=== PATIENT | male | born 1945 | race Caucasian/White ===

== ENCOUNTER 2016-11-12 19:52 | Day surgery (SDC) | payer OTHER ==
[2016-11-12 19:59] VITALS: O2SAT 96
--- NOTE | 2016-11-12 21:34 | UCPHY ---
H & P Time Seen by Provider: 11/12/16 21:05 Patient Type: New HPI/ROS: At 6 30 tonight while eating pork this patient developed a feeling of esophageal food impaction describing the inability to swallow thereafter any inability to tolerate his own secretions. He started spitting into a cup and reports no improvement. He's had similar brief episodes in the past that resolved without the need of medical attention. He denies any other associated symptoms except mild discomfort in the upper esophageal region. ROS: No coughing, shortness of breath no other pulmonary symptoms. GI: No vomiting. He denies any significant GERD symptoms or history of GERD symptoms. HEENT: No complaints neuro: No complaints. 7 point ROS is otherwise negative. Past Medical/Surgical History: Mild asthma Hypothyroid Smoking Status: Never smoked Physical Exam: Pleasant 69-year-old male in no acute distress General Appearance: Alert, no distress. Eyes: Pupils equal and round no pallor or injection. ENT, Mouth: Mucous membranes moist. Oropharynx: No erythema. No drooling or stridor. Respiratory: There are no retractions, lungs are clear to auscultation. Cardiovascular: Regular rate and rhythm. Gastrointestinal: Abdomen is soft and nontender, no masses, bowel sounds normal. Patient is leaning forward and spitting into a cup unable swallow secretions. Neurological: GCS 15 Skin: Warm and dry, no rashes. Musculoskeletal: Neck is supple nontender. Extremities are symmetrical, full range of motion. Psychiatric: Mood and affect normal DIFFERENTIAL DIAGNOSIS: After history and physical exam differential diagnosis was considered for esophageal food impaction, esophageal spasm, esophageal lesion Constitutional: Initial Vital Signs Temperature (C) 36.7 C 11/12/16 19:57 Heart Rate 69 11/12/16 19:57 Respiratory Rate 18 11/12/16 19:57 Blood Pressure 142/70 H 11/12/16 19:57 O2 Sat (%) 96 11/12/16 19:57 O2 Delivery Mode Room Air Allergies/Adverse Reactions: No Known Allergies Allergy (Unverified 09/14/10 11:36) Home Medications: Medication Instructions Recorded Albuterol Sulfate [Albuterol HFA 2 puffs IH Q4-6PRN PRN #1 inh 09/14/10 17g] Atorvastatin Calcium [Lipitor 20 mg PO DAILY 08/16/12 mg (RX)] Levothyroxine [Synthroid 100 mcg mcg PO DAILY06 08/16/12 (RX)] Travoprost [Travatan Z] 5 ml OP 08/16/12 MDM/Departure - MDM ED Course/Re-evaluation: Patient attempted to this episode of water with no success. IV Ativan 1 mg Discussion: Esoph food impaction warranting GI consult for upper endoscopy. I spoke with Dr. Garland Rogers at [facility] Emergency Department accepts patient for transfer. His will drive him to [facility]. I paged GI of the [facility]-Dr. Jose Deng at 9:35 p.m. and will consult him regarding this case. I spoke with Jose Deng-physician on-call for GI of [facility] regarding this case and he will consult at [facility] ED - Depart Disposition: Home, Routine, Self-Care Clinical Impression: Food impaction of esophagus Qualifiers: Encounter type: initial encounter Qualified Code(s): T18.128A - Food in esophagus causing other injury, initial encounter Condition: Good Instructions: Food Impaction (ED) Additional Instructions: Diagnosis: Esophageal food impaction Plan: Nothing to eat or drink, way the hospital Go directly to [facility] Emergency Department for further evaluation and treatment. Referrals: Collin Spaulding MD [Primary Care Provider] - As per Instructions - PQRS PQRS Measurement: 134: Depression screening and followup, PRIME MD-PHQ2 (12 years and older) Over the last 2 weeks, how often have you been bothered by any of the following problems? 1. Feeling down, depressed, or hopeless? 2. Little interest or pleasure in doing things? Patient answered no to both 1 and 2 130: Documentation of medications. Reviewed all patient medications, doses, route and frequency. 226: Do you smoke? [No.] 47: 65 and older: Advanced care planning. Patient designates surrogate decision maker as spouse 51: 18 years old and older with diagnosis of COPD, spirometry performance. NA 52: 18 years old and older with COPD and symptoms of COPD or FEV1<60% predicted prescribed a B Agonist. NA
[2016-11-12] MEDS ORDERED: LORazepam 2 MG/ML INJ IVP ONE ×2 (21:40→23:37)
[2016-11-12 22:00] LABS: % IMMATURE GRANULYOCYTES 0.3 % (0.0-1.1); ABSOLUTE IMMATURE GRANULOCYTES 0.02 10^3/uL (0.00-0.10); ADD DIFF? NO; ADD MORPH? NO; ADD SCAN? NO; ATYPICAL LYMPHOCYTE FLAG 0 (0-99); FRAGMENT RBC FLAG 0 (0-99); HEMATOCRIT 46.9 % (40.0-51.0); HEMOGLOBIN 16.6 g/dL (13.7-17.5); LEFT SHIFT FLG 0 (0-99); LIPEMIA HEMOLYSIS FLAG 90 (0-99); MEAN CELL HEMOGLOBIN 31.1 pg (27.9-34.1); MEAN CELL HEMOGLOBIN CONCENTR. 35.4 g/dL (32.4-36.7); MEAN CELL VOLUME 87.8 fL (81.5-99.8); MEAN PLATELET VOLUME 10.8 fL (8.7-11.7); PLATELET CLUMPS FLAG 0 (0-99); PLATELET COUNT 181 10^3/uL (150-400); RED BLOOD CELL COUNT 5.34 10^6/uL (4.40-6.38); RED CELL DISTRIBUTION WIDTH 13.2 % (11.5-15.2)
[2016-11-12 22:15] LABS: ANION GAP 17 mEq/L (8-16); CALCIUM 9.9 mg/dL (8.5-10.4); CARBON DIOXIDE 25 mEq/l (22-31); CHLORIDE 101 mEq/L (97-110); CREATININE 1.1 mg/dL (0.7-1.3); GLOMERULAR FILTRATION RATE > 60; GLUCOSE 103 mg/dL (70-100); POTASSIUM 4.1 mEq/L (3.5-5.2); SODIUM 143 mEq/L (134-144)
--- NOTE | 2016-11-12 22:46 | EDPHY ---
H & P Time Seen by Provider: 11/12/16 21:05 HPI/ROS: Chief Complaint: Can not swallow HPI: 71-year-old male presenting from [facility] with an esophageal food impaction. Patient was eating pork at 6:30 this evening when he had the sensation is unable to swallow. He has tried to swallow liquids since that time without success. He presented to [facility] and was diagnosed with a food impaction. He has had similar episodes in the past which were brief and did not require medical attention. Dr. Forbes spoke with Dr. Deng, gastroenterology. He will consult on the patient in the emergency department here. ROS: 10 point Review of Systems is negative except as noted in the HPI. PMH: Asthma, hypothyroidism Social History: No smoking, no alcohol, no recreational drug use Family History: non-contributory Physical Exam: Gen: Awake, Alert, uncomfortable appearing HEENT: Nose: no rhinorrhea Eyes: PERRLA, EOMI Mouth: Moist mucosa Neck: Supple, no JVD Chest: nontender, lungs clear to auscultation Heart: S1, S2 normal, no murmur Abd: Soft, non-tender, no guarding Back: no CVA tenderness, no midline tenderness Ext: no edema, non-tender Skin: no rash Neuro: CN II-XII intact, Sensation grossly intact, Strength 5/5 in bilateral upper and lower extremities - Medical/Surgical History Other PMH: denies - Social History Smoking Status: Never smoked Constitutional: Initial Vital Signs Temperature (C) 36.7 C 11/12/16 19:57 Heart Rate 69 11/12/16 19:57 Respiratory Rate 18 11/12/16 19:57 Blood Pressure 142/70 H 11/12/16 19:57 O2 Sat (%) 96 11/12/16 19:57 O2 Delivery Mode Nasal Cannula O2 (L/minute) 2 Allergies/Adverse Reactions: No Known Allergies Allergy (Unverified 09/14/10 11:36) Home Medications: Medication Instructions Recorded Albuterol Sulfate [Albuterol HFA 2 puffs IH Q4-6PRN PRN #1 inh 09/14/10 17g] Atorvastatin Calcium [Lipitor 20 mg PO DAILY 08/16/12 mg (RX)] Levothyroxine [Synthroid 100 mcg mcg PO DAILY06 08/16/12 (RX)] Travoprost [Travatan Z] 5 ml OP 08/16/12 Medical Decision Making ED Course/Re-evaluation: Will give IV glue gun and reassess. 23:35 patient received IV glucagon approximately 20 minutes ago. No change in his condition. I have discussed with Dr. Deng, GI. He is suggesting 1 and a additional mg of Ativan and sips of a carbonated beverage. He will recheck on the patient's progress and about an hour. Patient still unable to swallow. Patient to the endoscopy suite with Dr. Deng. - Data Points Laboratory Results: Laboratory Results 11/12/16 21:53 11/12/16 21:53 11/12/16 11/12/16 21:53 21:53 WBC 7.35 10^3/uL 10^3/uL (3.80-9.50) RBC 5.34 10^6/uL 10^6/uL (4.40-6.38) Hgb 16.6 g/dL g/dL (13.7-17.5) Hct 46.9 % % (40.0-51.0) MCV 87.8 fL fL (81.5-99.8) MCH 31.1 pg pg (27.9-34.1) MCHC 35.4 g/dL g/dL (32.4-36.7) RDW 13.2 % % (11.5-15.2) Plt Count 181 10^3/uL 10^3/uL (150-400) MPV 10.8 fL fL (8.7-11.7) Neut % (Auto) 58.0 % % (39.3-74.2) Lymph % (Auto) 29.3 % % (15.0-45.0) [place] % (Auto) 8.7 % % (4.5-13.0) Eos % (Auto) 3.0 % % (0.6-7.6) Baso % (Auto) 0.7 % % (0.3-1.7) Nucleat RBC Rel Count 0.0 % % (0.0-0.2) Absolute Neuts (auto) 4.27 10^3/uL 10^3/uL (1.70-6.50) Absolute Lymphs (auto) 2.15 10^3/uL 10^3/uL (1.00-3.00) Absolute Monos (auto) 0.64 10^3/uL 10^3/uL (0.30-0.80) Absolute Eos (auto) 0.22 10^3/uL 10^3/uL (0.03-0.40) Absolute Basos (auto) 0.05 10^3/uL 10^3/uL (0.02-0.10) Absolute Nucleated RBC 0.00 10^3/uL 10^3/uL (0-0.01) Immature Gran % 0.3 % % (0.0-1.1) Immature Gran # 0.02 10^3/uL 10^3/uL (0.00-0.10) Sodium 143 mEq/L mEq/L (134-144) Potassium 4.1 mEq/L mEq/L (3.5-5.2) Chloride 101 mEq/L mEq/L (97-110) Carbon Dioxide 25 mEq/l mEq/l (22-31) Anion Gap 17 mEq/L H mEq/L (8-16) BUN 25 mg/dL H mg/dL (7-23) Creatinine 1.1 mg/dL mg/dL (0.7-1.3) Estimated GFR > 60 Glucose 103 mg/dL H mg/dL (70-100) Calcium 9.9 mg/dL mg/dL (8.5-10.4) Medications Given: Discontinued Medications Glucagon (Glucagen) 1 mg IVP EDNOW ONE Stop: 11/12/16 22:50 Last Admin: 11/12/16 23:15 Dose: 1 mg Lorazepam (Ativan Injection) 1 mg IVP EDNOW ONE Stop: 11/12/16 21:41 Last Admin: 11/12/16 22:01 Dose: 1 mg Lorazepam (Ativan Injection) 1 mg IVP EDNOW ONE Stop: 11/12/16 23:38 Last Admin: 11/12/16 23:45 Dose: 1 mg Departure - Departure Disposition: Home, Routine, Self-Care Clinical Impression: Food impaction of esophagus Qualifiers: Encounter type: initial encounter Qualified Code(s): T18.128A - Food in esophagus causing other injury, initial encounter Condition: Good Instructions: Food Impaction (ED) Additional Instructions: Diagnosis: Esophageal food impaction Plan: Nothing to eat or drink, way the hospital Go directly to [facility] Emergency Department for further evaluation and treatment. Referrals: Collin Spaulding MD [Primary Care Provider] - As per Instructions
[2016-11-12] MEDS ORDERED: GLUCAGON,HUMAN RECOMBINANT 1 MG VIAL IVP ONE (22:49)
[2016-11-13 01:17] VITALS: BP 126/70; PULSE 70; RESP 14; TEMP 97
[2016-11-13] MEDS ORDERED: FLUMAZENIL 0.5 MG/5 ML MDV IVP ONE (01:44)
[2016-11-13] MEDS ORDERED: NALOXONE HCL 0.4 MG/ML INJ ONE (01:44)
[2016-11-13] MEDS ORDERED: MIDAZOLAM 2 MG/2 ML VIAL ONE (01:44)
[2016-11-13] MEDS ORDERED: fentaNYL 100 MCG/2 ML INJ ONE (01:44)
--- NOTE | 2016-11-13 06:09 | GPN ---
[f rep st] PROCEDURE NOTE DATE OF PROCEDURE: 11/13/2016 PROCEDURE: Upper endoscopy with foreign body removal, biopsy. INDICATIONS AND PRE-PROCEDURE DIAGNOSIS: Meat impaction in the esophagus. Of note, he denies heartburn. Past trouble with dysphagia. POSTPROCEDURE DIAGNOSIS: Food impaction, removed. PREMEDICATION: Fentanyl 150 mcg IV, Versed 5.5 mg IV. Total time of procedure from sedation to end = 24 minutes. COMPLICATIONS: None. FINDINGS: After informed consent was obtained, the patient was placed in left lateral decubitus position. Video upper endoscope was placed under direct visualization and advanced. In the upper esophagus, there was a meat impaction seen. Using a banding cap, this was suctioned into the channel, and removed. No further food impaction was present at the end of the procedure. The esophagus had multiple rings throughout, including where the food had been impacted. There were also some "furrows." Biopsies were done of several rings. Stomach, duodenum were grossly normal, but only partially visualized due to the presence of old food. IMPRESSION: Food impaction, as above. Removed. Otherwise, multiple rings seen throughout the esophagus. Suspect eosinophilic esophagitis. PLAN: 1. Biopsies pending. 2. I will have my nurse contact the patient, to schedule repeat upper endoscopy in an outpatient setting, where we can then dilate him fully in a safe manner. If his biopsies return as eosinophilic esophagitis, as I suspect, we can also discuss further management at that time. Thank you for allowing me to help in the management of this patient. /[id number]/MODL MTDD
== END 2016-11-13 12:26 | disposition home or self-care (01) ==
LOC: CED 19:52 → FSGY 11-13 02:41
PROVIDERS: ATTEND Internal Medicine Gastroenterology
DX: T18.128A Food in esophagus causing other injury, initial encounter (principal)
CPT/HCPCS: 43247; 88305; J1610; J2060; J2250; J3010; 80048-PO; 85025-PO; J2310

== ENCOUNTER 2018-12-21 12:44 | Observation (INO) | payer OTHER | END 2018-12-22 12:55 | disposition home or self-care (01) | LOC: CED 12:44 → F2N 18:19 ==